=== PATIENT | male | born 1955 ===

== ENCOUNTER 2018-06-08 07:41 | Day surgery (SDC) | payer BC ==
[~2018-06-08 07:41] MED LIST: Buffered Lidocaine 0.9% SYRIN* 5 ML/SYR SYRINGE INTRADERM ONE; Famotidine IV* 10 MG/ML 2 ML (20 mg) IV ONE
[2018-06-08] MEDS ORDERED: ceFAZolin 2 GM PREMIX (*) 2 GM/50 ML BAG IVPB ONE (07:49)
[2018-06-08] MEDS ORDERED: oxyCODONE/Acetamin 5/325 MG* TAB PO PRN (11:41)
[2018-06-08] MEDS ORDERED: fentaNYL* 50 MCG/ML 2 ML VIAL (100 MCG VIAL) IV PRN (11:41)
[2018-06-08] MEDS ORDERED: Naloxone* 0.4 MG/ML 1 ML VIAL IV PRN (11:41)
[2018-06-08] MEDS ORDERED: HYDROcodone/ACETAMIN 5-325 MG* 1 TAB PO PRN (11:41)
[2018-06-08] MEDS ORDERED: DiMENhydriNATE IV* 50 MG/ML VIAL IV PUSH PRN (11:41)
[2018-06-08] MEDS ORDERED: Propofol* 10 MG/ML 20 ML BTL IV PUSH ONE (11:44)
[2018-06-08] MEDS ORDERED: Lidocaine 2% PF * 5 ML VIAL ONE (11:44)
[2018-06-08] MEDS ORDERED: Midazolam* 1 MG/ML 5 ML VIAL (5 MG) ONE (11:45)
[2018-06-08] MEDS ORDERED: fentaNYL* 50 MCG/ML 2 ML VIAL (100 MCG VIAL) ONE (11:45)
[2018-06-08] MEDS ORDERED: ROPIVACAINE 5 MG/ML 30 ML BTL (0.5%) ONE (12:03)
[2018-06-08] MEDS ORDERED: Ondansetron INJ* 2 MG/ML VIAL ONE (12:22)
[2018-06-08 13:11] VITALS: BP 158/86
--- NOTE | 2018-06-09 03:58 | OP ---
DATE OF OPERATION: 06/08/18 - [facility] DATE OF : 57 ATTENDING SURGEON: Jacobo Neri MD SOCIOLOGY INSTRUCTOR: Marlyn Zamudio PA-C PRE-OP DIAGNOSIS: Painful calcaneal screw from the previous posterior tibial reconstruction. POST-OP DIAGNOSIS: Painful calcaneal screw from the previous posterior tibial reconstruction. OPERATIVE PROCEDURE: Removal of heel screw, right side. DESCRIPTION OF PROCEDURE: The patient was taken to the operating room where we placed an ankle Esmarch. The small stab wound where the previous screw was placed was located at the heel and then I put the intramedullary guide pin from the 7.3-mm set down along the shaft of the cannulated screw. This greatly facilitated removal of the screw using the cannulated screw racing driver. We then irrigated the heel wound. There was no washer used. Closing the heel wound with interrupted 2-0 Prolene sutures and a compression dressing was applied. [id number] #: [id number]
== END 2018-06-08 13:26 | disposition home or self-care (01) ==
LOC: OR 07:41
PROVIDERS: ATTEND Orthopaedic Surgery
DX: T84.84XA Pain due to internal orthopedic prosthetic devices, implants and grafts, initial encounter (principal); Y83.1 Surgical operation with implant of artificial internal device as the cause of abnormal reaction of the patient, or of later complication, without mention of misadventure at the time of the procedure; E11.9 Type 2 diabetes mellitus without complications; Z79.84 Long term (current) use of oral hypoglycemic drugs; I10 Essential (primary) hypertension; E78.00 Pure hypercholesterolemia, unspecified; Z72.0 Tobacco use
CPT/HCPCS: 88300; J0690; J2250; J2405; J2704; J2795; J3010